=== PATIENT | male | born 1965 | race Caucasian/White ===

== ENCOUNTER 2020-09-17 07:37 | Inpatient (IN) | payer BC, SELFPAY ==
[2020-09-17] VITALS (37 sets, daily range): BP systolic 125–231; BP diastolic 77–145; PULSE 67–98; RESP 15–29; TEMP 36.2–37.1; O2SAT 92–100; BMI 37.5
--- NOTE | ~2020-09-17 | XR_ITS ---
EXAMINATION: XR chest 2V EXAM DATE: 09/17/2020 08:13 INDICATION: Generalized chest pain, nausea, uncontrolled hypertension. TECHNIQUE: Frontal and lateral projections of the chest obtained and reviewed. Comparison is made to prior examination from 10/30/2016. FINDINGS: The lungs are clear. There are no pleural effusions. The cardiomediastinal silhouette is within normal limits. There is no pneumothorax suspected. The bones and soft tissues are unremarkab le. IMPRESSION: No acute cardiopulmonary findings. Reviewed, dictated and finalized at location A.
--- NOTE | 2020-09-17 07:40 | ED.CHESTPAIN ---
HPI - Chest Pain General Chief Complaint: Chest Pain Stated Complaint: cp Time Seen by Provider: 09/17/20 07:40 Source: patient and family Mode of arrival: ambulatory Limitations: no limitations History of Present Illness HPI narrative: Patient is a 55-year-old male with a history of hypertension, hyperlipidemia, borderline diabetes who presents for evaluation of chest pain. Patient states chest pain has been intermittent since yesterday evening described as a dull, aching sensation in the center of his chest. Pain currently 1/10 in severity. Very mild to minimal. No radiation of the pain to the jaw, shoulder, back, neck or flanks. No ripping or tearing sensation to the pain. No associated shortness of breath currently. He did report diaphoresis, nausea and an episode of emesis with an episode of chest pain overnight. Patient states in the past he has been on medication for his blood pressure, cholesterol and prediabetes but discontinued these medication a year ago due to cost constraints. He denies any leg swelling or calf pain. No fever or chills. He reports a chronic cough but denies any increase sputum production. He has never seen a cellar hand. Related Data Allergies Allergy/AdvReac Type Severity Reaction Status Date / Time Penicillins Allergy Unknown Verified 01/14/17 10:31 Review of Systems Review of Systems: Narrative: CONSTITUTIONAL: Denies fever, chills, or sweats. EYES: Denies visual changes, redness, or discharge. ENT: Denies rhinorrhea, congestion, sore throat, or otalgia. CARDIOVASCULAR: Reports minimal chest pain, denies palpitations or edema RESPIRATORY: Reports chronic cough without shortness of breath GASTROINTESTINAL: Denies abdominal pain, earlier nausea and vomiting has resolved GENITOURINARY: Denies dysuria or hematuria. SKIN: Denies rash or itching. MUSCULOSKELETAL: Denies back pain, joint pain, or myalgia. NEUROLOGIC: Denies headache, numbness, or weakness. [facility] Past Medical History Medical History Hyperlipidemia Hypertension Family History Family History (Updated 01/14/17 @ 10:30 by DOCTOR UNKNOWN) Father Hypertension Family history of coronary artery disease Family history of diabetes mellitus in first degree relative Sibling Family history of diabetes mellitus in first degree relative Mother Diabetes mellitus Social History Social History (Updated 09/17/20 @ 08:13 by Milagro Jarrett MD) Smoking status: Current every day smoker Alcohol intake: current Gender identity (if verbalized by the patient): Male Exam Narrative: Exam Narrative: GENERAL: Awake, alert, conversant HEAD: Normocephalic, atraumatic. EYES: PERRLA and EOMI. ENT: Nares clear, no rhinorrhea or epistaxis. Mucous membranes moist. NECK: Supple. CHEST: No respiratory distress, breathing even and non labored, no chest wall tenderness HEART: Regular rate, sinus rhythm ABDOMEN:Non distended, non tender EXTREMITIES: Normal range of motion. No edema. SKIN: Warm, dry, no rash. NEURO:No focal deficits. Alert and oriented x3 Course Vital Signs Vital signs: Vital Signs Pulse Rate 91 09/17/20 07:44 Pulse Oximetry 99 09/17/20 07:44 Temperature 37.1 C 09/17/20 07:48 Pulse Rate 90 09/17/20 09:51 Respiratory Rate 29 H 09/17/20 09:51 Blood Pressure 158/100 H 09/17/20 09:51 Pulse Oximetry 100 09/17/20 09:51 MDM - Chest Pain MDM Narrative Medical decision making narrative: Patient is a 55-year-old with significant cardiac risk factors, who presents for evaluation of chest pain. Given history and symptoms it does seem anginal in nature. EKG without acute ischemic changes. He was given ASA in the ED. Laboratory results notable for elevated glucose, elevated troponin. Patient without recurrent pain in the ER. He was very hypertensive at the time of arrival was given IV hydralazine. Patient had elevated glucose and was given
--- NOTE | 2020-09-17 07:43 | ECG_ITS ---
Measurements Intervals [place] Rate: 85 P: 42 OR: 177 QRS: -55 QRSD: 106 T: 88 QT: 368 QTc: 439 Interpretive Statements SINUS RHYTHM POSSIBLE LEFT ATRIAL ENLARGEMENT INCOMPLETE RIGHT BUNDLE BRANCH BLOCK LEFT ANTERIOR FASCICULAR BLOCK ST-T WAVE ABNORMALITY IN HIGH LATERAL LEADS- CONSIDER ISCHEMIA BASELINE ARTIFACT- I, III, AVL ABNORMAL ECG Electronically Signed On 09-17-2020 7:52:08 CDT by Hans Reyes D.O.
[2020-09-17 08:03] LABS: Basophils Percent Auto 0.4 % (0.2-1.2); Eosinophils Absolute Auto 0.1 K/mm3 (0-0.3); Eosinophils Percent Auto 0.4 % (0-4.4); Hemoglobin 17.7 g/dL (14.0-18.0); Immature Granulocyte Absolute 0.05 K/mm3 (0.00-0.031); Immature Granulocyte Percent A 0.4 % (0-0.5); Lymphocytes Absolute Auto 1.25 K/mm3 (0.9-3.2); Lymphocytes Percent Auto 11.2 % (18.3-44.2); Mean Corpuscular Hemoglobin 29.8 pg (26-34); Mean Corpuscular Volume 87.5 fl (80-100); Mean Platelet Volume 12.7 fl (7.4-10.4); Monocytes Absolute Auto 0.8 K/mm3 (0.1-0.6); Monocytes Percent Auto 7.1 % (2.6-8.5); Neutrophils Percent Auto 80.5 % (45.5-73.1); Platelet Count Result 170 k/mm3 (150-375); Red Blood Count 5.94 M/mm3 (4.6-6.20); Red Cell Distribution Width 13.3 % (11.5-14.5); White Blood Count 11.1 K/mm3 (4.5-10.0)
[2020-09-17] MEDS: ASPIRIN 81 MG CHEWABLE TABLET 324 MG PO (08:04)
[2020-09-17 08:14] LABS: INR 0.9; Prothrombin Time 12.6 Seconds (11.1-14.7)
[2020-09-17 08:15] LABS: Partial Thromboplastin Time 27.7 SECONDS (22.3-36.8)
[2020-09-17] MEDS: MORPHINE SULFATE (*CRX) 4 MG/ML INJ IV PUSH (08:16)
[2020-09-17] MEDS: ONDANSETRON INJ 4 MG/2 ML VIAL IV PUSH (08:17)
[2020-09-17] MEDS: hydrALAZINE HCL 20 MG/ML VIAL IV PUSH (08:17)
[2020-09-17 08:36] LABS: Anion Gap 4 mmol/L (8-16); Blood Urea Nitrogen 19 mg/dL (9-20); Calcium 9.7 mg/dL (8.4-10.2); Carbon Dioxide 36 mmol/L (22-30); Chloride 92 mmol/L (98-107); Estimated CRCL calculation 94 ml/min; Estimated Glomerular Filt Rate > 60; Glucose 509 mg/dL (75-110); Potassium 4.2 mmol/L (3.4-5.0); Sodium 132 mmol/L (137-145); Troponin I 0.116 ng/mL (0.000-0.034)
[2020-09-17] MEDS: HEPARIN SODIUM 5,000 UNITS/ML VIAL 4000 UNITS IV PUSH ×2 (09:03→20:21)
[2020-09-17] MEDS: INSULIN HUMAN REGULAR (*BKC) 100 UNITS/ML 7 UNITS SUB-Q (09:04)
[2020-09-17] MEDS: SODIUM CHLORIDE 0.9% IV 1,000 ML 999 ML IV CONT (09:06)
[2020-09-17] MEDS: HEPARIN SOD/D5W 100 UNITS/ML 25,000 UNITS/250 ML BAG 10 UNITS IV CONT (09:06)
[2020-09-17 09:10] LABS: Glucose Point of Care > 500 (65-105)
[2020-09-17 09:14] LABS: Hemoglobin A1C > 14.0 % (<5.7)
--- NOTE | 2020-09-17 09:57 | PC.NURSE ---
Kolby at beside updating pt.
[2020-09-17 10:00] LABS: Cholesterol 215 mg/dL (0-200); HDL Direct 39 mg/dL; Triglycerides 208 mg/dL (<150)
--- NOTE | 2020-09-17 10:03 | PC.NURSE ---
Attempted to call report to Dayna Castillo, per unit sec she is not available and will call back.
[2020-09-17 10:11] LABS: LDL Cholesterol Direct 123 mg/dL
[2020-09-17 10:26] LABS: Glucose Point of Care 493 (65-105)
--- NOTE | 2020-09-17 12:17 | ECHO_ITS ---
Patient Info Name: Edison Gagnon Age: 55 years : 1965 Gender: Male Ht: 72 in Wt: 277 lbs BSA: 2.57 m2 HR: 93 bpm BP: 196 / 108 mmHg Technical Quality: Fair Exam Date: 09/17/2020 1:31 PM Exam Location: [facility] Patient Status: Inpatient Admit Date: 09/17/2020 Staff Ordering Physician: Yojana Ocasio MD ([email or web address]) Gunner Mate: Lillian Petty RDCS Attending Provider: Chanell Bhat MD Exam Type: CA echo dop color flow w con Study Info Indications I21.4 - Non-ST elevation (NSTEMI) myocardial infarction Complete two-dimensional, color flow and Doppler transthoracic echocardiogram is performed with contrast to opacify the left ventricle and to improve the deliniation of the left ventricle endocardial borders. Contrast/Agitated Saline Contrast/Ag. Saline: Definity Amount: 4.00 ml Administered By: Nina Gregorio RN Existing IV Access: Yes IV Access Condition: patent with no signs of infiltration Summary 1. There is severe (asymmetric septal) increased left ventricular wall thickness (IVSDd 2.5 cm) consistent with hypertrophic cardiomyopathy . There is no evidence of left ventricular outflow obstruction. 2. Left ventricular systolic function is normal, estimated at 55-60%. 3. The aortic valve is trileaflet. 4. There is no aortic valve stenosis. 5. The mitral valve has normal leaflets. 6. There is no mitral valve regurgitation. 7. There is trace tricuspid valve regurgitation. 8. No pulmonary hypertension, estimated pulmonary arterial systolic pressure is 20 mmHg. 9. Normal inferior vena cava with >50% collapse upon inspiration. 10. There is no pericardial effusion. Left Ventricle Left ventricular chamber dimension is normal. Left ventricular systolic function is normal, estimated at 55-60%. There is severe (asymmetric septal) increased left ventricular wall thickness (IVSDd 2.5 cm) consistent with hypertrophic cardiomyopathy . There is no evidence of left ventricular outflow obstruction. The left ventricular diastolic function is grade I diastolic dysfunction. Right Ventricle Right ventricular chamber dimension is normal. Right ventricular systolic function is normal. Left Atria Left atrial chamber dimension is normal. Right Atria Right atrial chamber dimension is normal. Aortic Valve The aortic valve is trileaflet. There is no aortic valve sclerosis. There is no aortic valve stenosis. There is no aortic valve regurgitation. Pulmonic Valve The pulmonic valve is normal. There is no pulmonic valve stenosis. There is no pulmonic regurgitation. Mitral Valve The mitral valve has normal leaflets. There is no mitral valve stenosis. There is no mitral valve regurgitation. Tricuspid Valve The tricuspid valve leaflets are normal. There is trace tricuspid valve regurgitation. No pulmonary hypertension, estimated pulmonary arterial systolic pressure is 20 mmHg. Pericardium/Pleural The pericardium appears normal. There is no pericardial effusion. Inferior Vena Cava Normal inferior vena cava with >50% collapse upon inspiration. Aorta The aortic root size at the sinus of Valsalva is normal. The prox ascending aorta size is normal. Left Ventricular Outflow Tract Name Value Normal LV
--- NOTE | 2020-09-17 12:47 | PM.CNCAR ---
Assessment and Plan Assessment and plan (1) NSTEMI (non-ST elevated myocardial infarction): Code(s): I21.4 - Non-ST elevation (NSTEMI) myocardial infarction Status: Acute Assessment and Plan: 55 y/o with extensive cardiovascular risk factors including obesity, active tobacco abuse, poorly controlled HTN and DM (self stopped medicine >1 year ago, HgA1C 14) who presents with chest pain He rules in for NE with trop of 0.1 -- 1.6 He is chest pain free since admission EKG without dynamic changes He will need LHC/coronary angiogram. Currently his BP is markedly elevated and his blood sugar > 500. Will plan LHC tomorrow once he is more stable. Sooner if he develops chest pain. For now will continue IV heparin. received ASA 325. Will continue with 81 daily. Will hold off second antiplatelet agents in case cath shows multivessel disease and he needs CABG. Start high intensity stating, atrvastatin 40 mg daily For BP control. Will start Metoprolol and Amlodipine. If BP remains elevated will start Nitro drip Check 2D echo management for hyperglycemia per primary team (2) Hypertensive urgency: Code(s): I16.0 - Hypertensive urgency Status: Acute Assessment and Plan: Start Metoprolol and Amlodipine. Consider Nitro drip if BP remains markedly elevated particularity if he has recurrence of chest pain (3) Diabetes mellitus: Code(s): E11.9 - Type 2 diabetes mellitus without complications Status: Acute Assessment and Plan: HgA1c is 14. (4) Tobacco abuse: Code(s): Z72.0 - Tobacco use Status: Acute Assessment and Plan: Okay to use nicotine patch from cardiac standpoint (5) CLIVE (obstructive sleep apnea): Code(s): G47.33 - Obstructive sleep apnea (adult) (pediatric) Status: Acute Assessment and Plan: Non compliant/[id number] to CPAP (6) History of paroxysmal supraventricular tachycardia: Code(s): Z86.79 - Personal history of other diseases of the circulatory system Status: Acute Assessment and Plan: noted on holter 2017 with short runs of SVT. in Sinus rhythm currently. Continue to monitor on tele History of Present Illness History of Present Illness Consult date/time: 09/17/20 12:47 55 y/o with h/o HTN, DM, HLD, CLIVE, tobacco abuse who presented with chest pain He reports 1/10 chest pain started around 11:00 pm last night, he went to sleep and around 3:00 am and his chest pain was up to 3/10 and he was nauseated and vomited around same time. He was diaphoretic as well. He eventually decided to seek medical attention around 7:00 am. He received ASA in ER and chest pain has resolved now. his initial trop was 0.1 and that went up now to 1.6. He remains chest pain free at this moment. He denies dyspnea, lightheadedness, dizziness or syncope. In ER he was also noted to have markedly elevated BP 190/120. His BG was also 500+. He has no recent medical follow up and has not been taking any of his medications in over a year. He smokes 2 packs a day. EKG shows sinus rhythm with left axis deviation and no ST/T changes. Chest Xray with no pulmonary edema or cardiomegaly He underwent cardiac work up in 2017 for palpitation. At that time had holter monitor that showed short runs of SVT. Stress test (plain EKG, no imaging) was negative for ischemia at 79% of max predicted heart rate with poor exercise tolerance. Reason For Visit: Unstable angina, hyperglycemia Review of Systems Review of Systems: All systems reviewed & are unremarkable except as noted in HPI and below Constitutional: Constitutional: Denies fatigue and Denies headache(s) Eyes: Eyes: Denies blurry vision ENT: Reports Normal hearing present and Denies headache(s) Cardiovascular: Cardiovascular: Denies chest pain, Denies diaphoresis, Denies pedal edema, Denies leg edema, Denies lightheadedness, Denies palpitations and Denies dyspnea Respiratory: Respiratory: Sergio
[2020-09-17 12:57] LABS: Glucose Point of Care 436 (65-105)
[2020-09-17] MEDS: METOPROLOL TARTRATE 25 MG TABLET PO (13:03)
[2020-09-17] MEDS: hydrALAZINE HCL 20 MG/ML VIAL 10 MG IV PUSH (13:04)
--- NOTE | 2020-09-17 13:17 | ADMGEN ---
This patient, Edison Hutchins Walker, was admitted to IMU Room 201-01 at 1030. Patient/family oriented to hospital policies and general routines including ID bracelet, bed and alarms, visiting hours, pain management, procedures, bathroom and other care routines, personal items, smoking policy, room service/diet, and visiting hours. Information on how to activate the Rapid Response Team has been discussed. Patient/Family are encouraged to report perceived risks to care and to ask questions if they do not understand what they are told or what they should do.
[2020-09-17] MEDS: PERFLUTREN LIPID MICROSPHERES 1.5 ML VIAL DILUTED TO 10 ML TOTAL VOLUME IV PUSH (14:09)
--- NOTE | 2020-09-17 15:39 | PM.IMHP ---
H&P: HPI History of Present Illness Date/Time: 09/17/20 15:39 55-year-old male with a history of hypertension, hyperlipidemia, borderline diabetes who presents for evaluation of chest pain. Patient states chest pain has been intermittent since yesterday evening described as a dull, aching sensation in the center of his chest. Pain currently 1/10 in severity. Pt has not seen a doctor for 1 year. Pt has history of DM and HTN but has not been taking his medications. Pt is a smoker of 2 packs a day. Pt not been in hospital himself. Pt states he could not afford his medications. Pt has mild chest pains today 1-2/10. denies any sob. BP is very high and sugars are high. Pt is seen by cardiology here for heart cath tomorrow am. Chief Complaint: CHEST PAIN Review of Systems Review of Systems: All systems reviewed & are unremarkable except as noted in HPI and below PMFSH Past Medical History Medical History Hyperlipidemia Hypertension Family History Family History Father Hypertension Family history of coronary artery disease Family history of diabetes mellitus in first degree relative Sibling Family history of diabetes mellitus in first degree relative Mother Diabetes mellitus Social History Social History Smoking packs per day: 2 Smoking cigarettes per day: 40.0 Years smoked: 27 Smoking pack-years: 54.00 Smoking status: Current every day smoker Tobacco type: cigarettes Alcohol intake: current Gender identity (if verbalized by the patient): Male Spiritual care concerns: No Meds Home Medications and Allergies Home Medications Medication Instructions Recorded Confirmed Type No Home Medications 09/17/20 09/17/20 History Allergies Allergy/AdvReac Type Severity Reaction Status Date / Time Penicillins Allergy Unknown Verified 01/14/17 10:31 Vital Signs Vital Signs - 24 hr 09/17/20 07:44 09/17/20 07:45 09/17/20 07:46 Temperature Pulse Rate 91 89 86 Respiratory Rate 21 H 20 Blood Pressure 231/145 H Pulse Oximetry 99 97 100 09/17/20 07:48 09/17/20 08:00 09/17/20 08:02 Temperature 37.1 C Pulse Rate 88 86 94 Respiratory Rate 24 H 21 H 17 Blood Pressure 231/145 H 197/129 H Pulse Oximetry 98 100 09/17/20 08:15 09/17/20 08:20 09/17/20 08:22 Temperature Pulse Rate 88 96 91 Respiratory Rate 22 H 21 H 16 Blood Pressure 205/112 H 205/112 H Pulse Oximetry 96 97 97 09/17/20 08:30 09/17/20 08:38 09/17/20 08:39 Temperature Pulse Rate 92 96 98 Respiratory Rate 21 H 24 H 19 Blood Pressure 153/103 H Pulse Oximetry 94 96 95 09/17/20 08:43 09/17/20 08:45 09/17/20 08:51 Temperature Pulse Rate 94 96 95 Respiratory Rate 22 H 22 H 20 Blood Pressure 158/101 H 189/120 H Pulse Oximetry 100 95 09/17/20 09:00 09/17/20 09:01 09/17/20 09:15 Temperature Pulse Rate 93 95 91 Respiratory Rate 22 H Blood Pressure 157/108 H Pulse Oximetry 92 97 97 09/17/20 09:21 09/17/20 09:30 09/17/20 09:31 Temperature Pulse Rate 87 90 88 Respiratory Rate 19 16 15 Blood Pressure 144/89 H 164/102 H Pulse Oximetry 100 09/17/20 09:41 09/17/20 09:45 09/17/20 09:51 Temperature Pulse Rate 89 90 90 Respiratory Rate 15 21 H 29 H Blood Pressure 164/100 H 158/100 H Pulse Oximetry 100 09/17/20 10:25 09/17/20 10:30 09/17/20 10:54 Temperature 36.2 C L Pulse Rate 91 96 Respiratory Rate 18 18 Blood Pressure 163/95 H 195/123 H 191/120 H Pulse Oximetry 96 98 09/17/20 12:00 Temperature 36.4 C Pulse Rate 93 Respiratory Rate 16 Blood Pressure 196/108 H Pulse Oximetry 98 Exam Const: General: well developed Nutritional Appearance: well nourished HENMT: Head: normocephalic Eyes: General: appearance normal, both eyes and all related structures Pupils: Equal, round
--- NOTE | 2020-09-17 16:25 | PM.EVENT ---
Event Note Event Note Event Note: Notified that patient troponin up to 17. Patient remains chest pain free. 2D echo showed normal LV function and no obvious regional wall motion changes. Continue IV heparin. Will plan LHC in am.
[2020-09-17] MEDS: NICOTINE (*PBKC) 21 MG PATCH 1 PATCH TRANSDERM (16:36)
[2020-09-17] MEDS: amLODIPine BESYLATE 5 MG TABLET 10 MG PO (16:37)
[2020-09-17] MEDS: ATORVASTATIN 40 MG TABLET PO (16:38)
[2020-09-17] MEDS: SODIUM CHLORIDE 0.9% IV 1,000 ML 70 ML IV CONT (16:39)
[2020-09-17] MEDS: INSULIN ASPART (*BKC) 100 UNITS/ML SUB-Q (16:42)
[2020-09-17 16:47] LABS: Glucose Point of Care 327 (65-105)
--- NOTE | 2020-09-17 17:25 | PCRCNOTE ---
Pt. does not want to wear Cpap here. Notified Dr. Bhat.
[2020-09-17 19:50] LABS: Glucose Point of Care 255 (65-105)
[2020-09-17 19:57] LABS: Partial Thromboplastin Time 29.8 SECONDS (22.3-36.8)
[2020-09-17] MEDS: METOPROLOL TARTRATE 50 MG TAB PO (20:21)
[2020-09-17] MEDS: INSULIN GLARGINE (*BKC) 100 UNITS/ML 10 UNITS SUB-Q (20:22)
[2020-09-18] VITALS (22 sets, daily range): BP systolic 131–160; BP diastolic 79–105; PULSE 63–91; RESP 12–19; TEMP 36.2–37.1; O2SAT 96–100
[2020-09-18 03:45] LABS: Basophils Percent Auto 0.3 % (0.2-1.2); Eosinophils Absolute Auto 0.1 K/mm3 (0-0.3); Hematocrit 49.8 % (42.0-52.0); Hemoglobin 16.8 g/dL (14.0-18.0); Immature Granulocyte Absolute 0.04 K/mm3 (0.00-0.031); Immature Granulocyte Percent A 0.4 % (0-0.5); Lymphocytes Absolute Auto 1.96 K/mm3 (0.9-3.2); Lymphocytes Percent Auto 19.3 % (18.3-44.2); Mean Corpuscular HGB Conc 33.7 g/dl (32-36); Mean Corpuscular Hemoglobin 29.7 pg (26-34); Mean Corpuscular Volume 88.1 fl (80-100); Mean Platelet Volume 12.7 fl (7.4-10.4); Monocytes Percent Auto 9.4 % (2.6-8.5); Neutrophils Absolute Auto 7.1 K/mm3 (1.3-6.7); Neutrophils Percent Auto 69.6 % (45.5-73.1); Platelet Count Result 170 k/mm3 (150-375); Red Blood Count 5.65 M/mm3 (4.6-6.20); Red Cell Distribution Width 13.7 % (11.5-14.5); White Blood Count 10.2 K/mm3 (4.5-10.0)
[2020-09-18 03:57] LABS: Anion Gap 1 mmol/L (8-16); Blood Urea Nitrogen 18 mg/dL (9-20); Calcium 8.5 mg/dL (8.4-10.2); Carbon Dioxide 34 mmol/L (22-30); Chloride 100 mmol/L (98-107); Estimated CRCL calculation 109 ml/min; Estimated Glomerular Filt Rate > 60; Glucose 277 mg/dL (75-110); Potassium 3.8 mmol/L (3.4-5.0); Sodium 135 mmol/L (137-145)
[2020-09-18 03:58] LABS: Partial Thromboplastin Time 47.7 SECONDS (22.3-36.8)
[2020-09-18] MEDS: HEPARIN SOD/D5W 100 UNITS/ML 25,000 UNITS/250 ML BAG 18 UNITS IV CONT (06:16)
[2020-09-18] MEDS: SODIUM CHLORIDE 0.9% IV 1,000 ML 70 ML IV CONT (06:17)
[2020-09-18] MEDS: HEPARIN SODIUM 5,000 UNITS/ML VIAL 4000 UNITS IV PUSH (06:19)
[2020-09-18 08:01] LABS: Glucose Point of Care 293 (65-105)
[2020-09-18] MEDS: ATORVASTATIN 40 MG TABLET PO (08:04)
[2020-09-18] MEDS: METOPROLOL TARTRATE 50 MG TAB PO ×2 (08:04→20:19)
[2020-09-18] MEDS: amLODIPine BESYLATE 5 MG TABLET 10 MG PO (08:04)
[2020-09-18] MEDS: ASPIRIN 81 MG CHEWABLE TABLET PO (08:05)
[2020-09-18] MEDS: lisinopriL 10 MG TABLET PO (08:05)
--- NOTE | 2020-09-18 08:58 | PM.PNCARD ---
Progress Note: A&P Assessment and Plan (1) NSTEMI (non-ST elevated myocardial infarction): Code(s): I21.4 - Non-ST elevation (NSTEMI) myocardial infarction Status: Acute Assessment and Plan: 55 y/o with extensive cardiovascular risk factors including obesity, active tobacco abuse, poorly controlled HTN and DM (self stopped medicine >1 year ago, HgA1C 14) who presents with chest pain He rules in for MT with trop of 0.1 -- 1.6 --17 He is chest pain free since admission EKG without dynamic changes LHC/coronary angiogram planned today 2D echo shows no regional wall motion changes and no significant valvular disease. Incidental diagnosis of hypertrophic cardiomyopathy (septal variant) noted without LVOT obstruction per echo Continue IV heparin repeat EKG this moring. Also repeat trop to follow trend Contnue ASA Will hold off second antiplatelet agents in case cath shows multivessel disease and he needs CABG. Start high intensity statin, atrvastatin 40 mg daily Started Metoprolol and Amlodipine. BP better controlled this am. May need further adjustment of antihypertensives Management for hyperglycemia per primary team Smoking cessation counseling. okay to use Nicotine patch (2) Hypertensive urgency: Code(s): I16.0 - Hypertensive urgency Status: Acute Assessment and Plan: BP better controlled down to 150s systolic from 190s on admission (3) Diabetes mellitus: Code(s): E11.9 - Type 2 diabetes mellitus without complications Status: Acute Assessment and Plan: HgA1c is 14. (4) Tobacco abuse: Code(s): Z72.0 - Tobacco use Status: Acute Assessment and Plan: Okay to use nicotine patch from cardiac standpoint (5) CLIVE (obstructive sleep apnea): Code(s): G47.33 - Obstructive sleep apnea (adult) (pediatric) Status: Acute Assessment and Plan: Non compliant/intolerant to CPAP (6) History of paroxysmal supraventricular tachycardia: Code(s): Z86.79 - Personal history of other diseases of the circulatory system Status: Acute Assessment and Plan: noted on holter 2017 with short runs of SVT. in Sinus rhythm currently. Continue to monitor on tele Subjective Date/time seen: 09/18/20 08:58 No overnight events. He denies recurrence of chest pain since admission. Denies dyspnea. Review of Systems Review of Systems: All systems reviewed & are unremarkable except as noted in HPI and below Constitutional: Constitutional: Denies fatigue and Denies headache(s) Eyes: Eyes: Denies blurry vision ENT: Reports Normal hearing present and Denies headache(s) Cardiovascular: Cardiovascular: Denies chest pain, Denies diaphoresis, Denies pedal edema, Denies leg edema, Denies lightheadedness, Denies palpitations and Denies dyspnea Respiratory: Respiratory: Denies cough and Denies dyspnea Gastrointestinal: Gastrointestinal: Denies abdominal pain Musculoskeletal: Musculoskeletal: Denies back pain Neurologic: Reports Normal hearing present and Denies headache(s) Psychiatric: Psychiatric: Denies anxiety Endocrine: Endocrine: Denies fatigue and Denies palpitations Exam Const: General: no acute distress Eyes: Sclera: sclerae normal Neck: Neck: no JVD Carotids: no bruits Resp: Effort & Inspection: normal respiratory effort Auscultation: clear to auscultation bilaterally Cardio: Rate: regular rate and not tachycardic Rhythm: regular rhythm Heart sounds: no gallops, no murmurs and no rubs Skin: General skin exam: normal color Neuro: Cranial nerves: Yes Normal hearing present Speech: normal speech Extrem: General: normal to inspection and no edema Psych: Affect: normal affect Objective Data Vital Signs Vital Signs: Vital Signs - 24 hr 09/17/20 09:00 09/17/20 09:01 09/17/20 09:15 Temperature Pulse Rate 93 95 91 Respiratory Rate 22 H Blood Pressure 157/108 H Pulse Oximetry 92 97 97
--- NOTE | 2020-09-18 10:20 | ECG_ITS ---
Measurements Intervals [place] Rate: 69 P: -11 NE: 187 QRS: -57 QRSD: 82 T: 132 QT: 422 QTc: 453 Interpretive Statements SINUS RHYTHM INCOMPLETE RIGHT BUNDLE BRANCH BLOCK LEFT ANTERIOR FASCICULAR BLOCK ST-T WAVE ABNORMALITY IN HIGH LATERAL LEADS- CONSIDER ISCHEMIA BASELINE ARTIFACT- I, II, AVR, AVL,A VF ABNORMAL ECG Electronically Signed On 09-18-2020 11:47:53 CDT by Hans Reyes D.O.
[2020-09-18 12:22] LABS: Glucose Point of Care 251 (65-105)
--- NOTE | 2020-09-18 13:22 | WPDMODSED ---
Moderate Sedation Note-Pt Data Patient Data Allergies Allergy/AdvReac Type Severity Reaction Status Date / Time Penicillins Allergy Unknown Verified 01/14/17 10:31 Home Medications Medication Instructions Recorded Confirmed Type No Home Medications 09/17/20 09/17/20 History Current Medications: Active Medications Amlodipine Besylate (Amlodipine Besylate 5 Mg Tablet) 10 mg PO QAM [facility] Last Admin: 09/18/20 08:04 Dose: 10 mg Documented by: Aspirin (Aspirin 81 Mg Chewable Tablet) 81 mg PO DAILY@0800 [facility] Last Admin: 09/18/20 08:05 Dose: 81 mg Documented by: Atorvastatin Calcium (Atorvastatin 40 Mg Tablet) 40 mg PO DAILY [facility] Last Admin: 09/18/20 08:04 Dose: 40 mg Documented by: Dextrose (Dextrose 50% 25 Gm/50 Ml Syringe) 12.5 gm IV PUSH PRN PRN; Protocol PRN Reason: Hypoglycemia Dextrose (Dextrose 50% 25 Gm/50 Ml Syringe) 12.5 gm IV PUSH PRN PRN; Protocol PRN Reason: Hypoglycemia Glucagon (Glucagon For Inj 1 Mg Vial) 1 mg IM PRN PRN; Protocol PRN Reason: Hypoglycemia Glucagon (Glucagon For Inj 1 Mg Vial) 1 mg IM PRN PRN; Protocol PRN Reason: Hypoglycemia Glucose (Glucose Oral Gel 15 Gm Of Glucse In 37.5 Gm Tube) 15 gm PO PRN PRN; Protocol PRN Reason: Hypoglycemia Glucose (Glucose Oral Gel 15 Gm Of Glucse In 37.5 Gm Tube) 15 gm PO PRN PRN; Protocol PRN Reason: Hypoglycemia Heparin Sodium (Porcine) (Heparin Sodium 5,000 Units/Ml Vial) 4,000 units IV PUSH PRN PRN PRN Reason: aPTT less than 55 seconds Last Admin: 09/18/20 06:19 Dose: 4,000 units Documented by: Heparin Sodium (Porcine) (Heparin Sodium 5,000 Units/Ml Vial) 3,500 units IV PUSH PRN PRN PRN Reason: aPTT 55 - 70 seconds Hydralazine HCl (Hydralazine Hcl 20 Mg/Ml Vial) 10 mg IV PUSH Q8H PRN PRN Reason: Blood Pressure - High Last Admin: 09/17/20 13:04 Dose: 10 mg Documented by: Heparin Sodium/Dextrose (Heparin Sodium/D5w 100 Units/Ml) 25,000 units in 250 mls @ 18 mls/hr IV CONT .[id number] [facility]; Protocol Last Admin: 09/18/20 06:16 Dose: 1,800 units/hr, 18 mls/hr Documented by: Dextrose (Dextrose 5% 1,000 Ml) 1,000 mls @ 100 mls/hr IVPB PRN PRN; Protocol PRN Reason: Hypoglycemia Dextrose (Dextrose 5% 1,000 Ml) 1,000 mls @ 100 mls/hr IVPB PRN PRN; Protocol PRN Reason: Hypoglycemia Sodium Chloride (Normal Saline Iv) 1,000 mls @ 70 mls/hr IV CONT .[id number] [facility] Last Admin: 09/18/20 06:17 Dose: 70 mls/hr Documented by: Insulin Aspart (Insulin Aspart (*Bkc) 100 Units/Ml) 4 - 8 units SUB-Q TIDWM [facility]; Protocol Last Admin: 09/18/20 09:54 Dose: Not Given Documented by: Insulin Glargine (Insulin Glargine (*Bkc) 100 Units/Ml) 10 units SUB-Q HS [facility] Last Admin: 09/17/20 20:22 Dose: 10 units Documented by: Lisinopril (Lisinopril 10 Mg Tablet) 10 mg PO DAILY [facility] Last Admin: 09/18/20 08:05 Dose: 10 mg Documented by: Metoprolol Tartrate (Metoprolol Tartrate 50 Mg Tab) 50 mg PO Q12HR [facility] Last Admin: 09/18/20 08:04 Dose: 50 mg Documented by: Morphine Sulfate (Morphine Sulfate (*Crx) 4 Mg/Ml Inj) 4 mg IV PUSH Q2H PRN PRN Reason: Pain Rated 7-10 Nicotine (Nicotine (*Pbkc) 21 Mg Patch) 1 patch TRANSDERM QAM [facility] Last Admin: 09/17/20 16:36 Dose: 1 patch Documented by: Ondansetron HCl (Ondansetron Inj 4 Mg/2 Ml Vial) 4 mg IV PUSH Q4H PRN PRN Reason: Nausea Sedation/Anesthesia: No previous sedation/anesthesia problems (including family history). [facility] Past Medical History Medical History Hyperlipidemia Hypertension Family History Family History Father Hypertension Family history of coronary artery disease Family history of diabetes mellitus in first degree relative Sibling Family history of diabetes mellitus in first degree relative Mother Diabetes mellitus Social History Social History Smoking packs per day: 2 Smoking cigarettes per da
--- NOTE | 2020-09-18 13:39 | PM.IMPN ---
Progress Note: A&P Assessment and Plan (1) History of paroxysmal supraventricular tachycardia: Code(s): Z86.79 - Personal history of other diseases of the circulatory system Status: Acute Assessment and Plan: Continue to monitor in IMU pt seen by cardiology (2) CLIVE (obstructive sleep apnea): Code(s): G47.33 - Obstructive sleep apnea (adult) (pediatric) Status: Acute Assessment and Plan: Pt to have CPAP at night (3) Tobacco abuse: Code(s): Z72.0 - Tobacco use Status: Acute Assessment and Plan: Pt to have nicotine patch pt is a smoker of 2 packs a day (4) Diabetes mellitus: Code(s): E11.9 - Type 2 diabetes mellitus without complications Status: Acute Assessment and Plan: Pt has been non compliant, pt is on lantus 10 units per day and SSI, continue to monitor accuchecks. (5) Hypertensive urgency: Code(s): I16.0 - Hypertensive urgency Status: Acute Assessment and Plan: Pt is on iv hydralazine and oral metroprolol and norvasc, I will increase his beta blockade and add lisinopril. (6) NSTEMI (non-ST elevated myocardial infarction): Code(s): I21.4 - Non-ST elevation (NSTEMI) myocardial infarction Status: Acute Assessment and Plan: Pt is on a heparin drip, ASA, pt is on statin, Pt can use NTG for severe CHEST pains. Pt for heart cath today Subjective Date/time seen: 09/18/20 13:39 Interval history: 55year old man hiistory of hypertension, hyperlipidemia, borderline diabetes who presents for evaluation of chest pain. Pts trop went to 17. Pt due to have heart cath today. Advised risk factor management, HTN, DM and tobacco smoking. Review of Systems Review of Systems: All systems reviewed & are unremarkable except as noted in HPI and below Exam Const: General: well developed Nutritional Appearance: well nourished HENMT: Head: normocephalic Eyes: General: appearance normal, both eyes and all related structures Pupils: Equal, round and reactive pupils present Neck: Neck: supple Chest: Chest palpation & inspection: normal inspection of the chest Resp: Effort & Inspection: normal respiratory effort Auscultation: clear to auscultation bilaterally Cardio: Jugular venous distension: no JVD Rhythm: regular rhythm Heart sounds: S1 normal heart sound present and S2 normal heart sound present GI: Inspection: normal to inspection Auscultation: normal bowel sounds Skin: General skin exam: normal color and dry skin Neuro: Cranial nerves: Yes CN's II-XII intact bilaterally and Yes Equal, round and reactive pupils present Cognition (Neuro): normal cognition Speech: normal speech Motor exam (neuro): 5/5 motor strength present throughout Extrem: General: normal to inspection Psych: Appearance: grossly normal Mental Status: mental status grossly normal Objective Data Vital Signs Vital Signs: Vital Signs - 24 hr 09/17/20 14:00 09/17/20 14:20 09/17/20 16:00 Temperature 36.3 C L Pulse Rate 85 81 Respiratory Rate 18 Blood Pressure 125/82 130/77 Pulse Oximetry 98 09/17/20 18:00 09/17/20 19:51 09/17/20 20:00 Temperature 36.3 C L Pulse Rate 84 89 94 Respiratory Rate 20 Blood Pressure 136/90 Pulse Oximetry 96 09/17/20 20:21 09/17/20 22:00 09/17/20 23:42 Temperature 36.3 C L Pulse Rate 82 67 73 Respiratory Rate 20 Blood Pressure 145/92 H Pulse Oximetry 96 09/18/20 00:00 09/18/20 02:00 09/18/20 04:00 Temperature 36.2 C L Pulse Rate 67 74 71 Respiratory Rate 18 Blood Pressure 160/97 H Pulse Oximetry 97 09/18/20 06:00 09/18/20 08:00 09/18/20 08:04 Temperature 36.6 C Pulse Rate 69 77 76 Respiratory Rate 18 Blood Pressure 152/105 H Pulse Oximetry 98 09/18/20 08:51 09/18/20 09:53 09/18/20 12:00 Temperature 37.1 C Pulse Rate 67 72 Respiratory Rate 18 Blood Pressure 131/79 Pulse Oximetry 97 98 Intake/Output Intake/Ou
--- NOTE | 2020-09-18 14:25 | ECG_ITS ---
Measurements Intervals [place] Rate: 72 P: 54 MI: 183 QRS: -61 QRSD: 101 T: 140 QT: 436 QTc: 477 Interpretive Statements SINUS RHYTHM LEFT ANTERIOR FASCICULAR BLOCK CONSIDER INFERIOR INFARCT, AGE INDETERMINATE T WAVE ABNORMALITY IN LATERAL LEADS- CONSIDER ISCHEMIA ABNORMAL ECG Electronically Signed On 09-18-2020 19:13:09 CDT by Hans Reyes D.O.
--- NOTE | 2020-09-18 14:29 | WPDCARDPROC ---
Cardiac Cath Procedure Note Date of procedure:: 09/18/20 Performing physician:: Bebeto Gomez MD Procedure: 1. Left heart catheterization, selective coronary angiogram. 2. Left ventricular angiogram. 3. PCI with stent placement to the 2nd large obtuse marginal of the circumflex using 3.5 x 15 mm Xience stent. 4. injection of intracoronary nitroglycerin 5. Angio-Seal device for arterial hemostasis 6. Conscious sedation, starting time is 1:37 p.m. ending time is 2:12 p.m. using 1 mg of Versed 25 micro, fentanyl medication administered by david Pineda RN under my supervision Air Compressor Mechanic: Dr. Bebeto Gomez Complications: None. Sedation: Conscious sedation, local anesthesia, using 1 mg of Versed said, 25 mcg of fentanyl, and using 1% lidocaine for local anesthesia. History: 55 years old gentleman with history of dyslipidemia hypertension and diabetes mellitus came to the hospital because of chest pain and noted to have non ST elevation myocardial infarction with troponin as high as 17 after further stabilization and treatment and after better improvement of his underlying uncontrolled diabetes he was brought to the recyclable materials collector for elective cardiac catheterization for definitive diagnosis of coronary disease. Technique: After informed consent was obtained from patient, was brought to the recyclable materials collector, put in the recyclable materials collector table, prepped and draped in usual sterile fashion. Five Qatari sheath was inserted into the right common femoral artery, through the sheath 5 Qatari JL4 catheter inserted, advanced to the left coronary artery, left coronary artery angiogram was obtained. The catheter was exchanged over guidewire into a 5 Qatari JR4 catheter, advanced to the right coronary artery, right coronary artery angiogram was obtained. The catheter then was exchanged over guidewire into this 5 Qatari pigtail catheter, advanced to left ventricle, left ventricular angiogram was obtained. The catheter then was pulled. The sheath then was changed over the guidewire to 6 Qatari sheath, over the sheath CLS 4.0 guide inserted advanced to the left coronary tree repeat left coronary angiogram was obtained. BMW wire was utilized, inserted and advanced through the lesion. Prior to that Angiomax was started, the lesion was identified, balloon angioplasty was done using emerge 12 x 2.5 mm balloon, went up to 8 atmospheric pressure for 20 seconds. Post balloon angioplasty angiogram was done showed improvement of the lesion but still with significant residual disease, this was treated with using stent, Xience stent 3.5 x 15 mm was inserted advanced to the lesion, and subsequently the stent was deployed with 12 atmospheric pressure for 20 seconds followed by another inflation for 12 atmospheric pressure for 30 seconds. Noted distal to the stent to have slight narrowing, treated with intracoronary nitroglycerin 200 mcg of nitroglycerin infused, and repeat angiogram showed improvement of the lesion with good distal runoff. Finally the wire was removed final angiograms were done. Right femoral artery was evaluate angiogram, and subsequently Angio-Seal device for arterial hemostasis was applied with no bleeding or hematoma Patient tolerated the procedure no complication, taken from the recyclable materials collector to his room in stable condition stable vital signs. Hemodynamics: aortic pressure 134/60 . LV pressure 134/04 with LVEDP of 22 mmHg Angiographic findings: Left main: Medium size artery no significant disease or stenosis. Lad medium size artery showed mid LAD 40% narrowing followed by 50% narrowing in the mid section. Left circumflex artery, large caliber vessel, showed mid circumflex and 2nd obtuse marginal which is large caliber vessel showed 99% subtotal occlusion RCA: Dominant vessel, showed mid RCA significant irregularity with a 40-50% disease. LV: Normal size left ventricle with normal left ventricular systolic function. Summary: single vessel severe coronary disease with d
[2020-09-18] MEDS: SODIUM CHLORIDE 0.9% IV 1,000 ML 125 ML IV CONT (16:10)
[2020-09-18] MEDS: INSULIN ASPART (*BKC) 100 UNITS/ML SUB-Q (16:11)
[2020-09-18] MEDS: NICOTINE (*PBKC) 21 MG PATCH 1 PATCH TRANSDERM (16:12)
[2020-09-18 17:16] LABS: Glucose Point of Care 226 (65-105)
[2020-09-18 20:16] LABS: Glucose Point of Care 256 (65-105)
[2020-09-18] MEDS: INSULIN GLARGINE (*BKC) 100 UNITS/ML 15 UNITS SUB-Q (20:18)
[2020-09-18] MEDS: TICAGRELOR 90 MG TABLET PO (20:20)
[2020-09-19] VITALS (8 sets, daily range): BP systolic 134–155; BP diastolic 90–97; PULSE 63–75; RESP 16–20; TEMP 36.2–36.8; O2SAT 98–99
--- NOTE | 2020-09-19 05:11 | ECG_ITS ---
Measurements Intervals [place] Rate: 72 P: -14 TN: 190 QRS: -60 QRSD: 94 T: 126 QT: 397 QTc: 437 Interpretive Statements SINUS RHYTHM LEFT ANTERIOR FASCICULAR BLOCK BORDERLINE ST-T WAVE ABNORMALITY- HIGH LATERAL LEADS BASELINE ARTIFACT- I, II, AVR, AVL, V5-V6 ABNORMAL ECG Electronically Signed On 09-19-2020 9:27:55 CDT by Hans Reyes D.O.
[2020-09-19] MEDS: METOPROLOL TARTRATE 50 MG TAB PO (09:01)
[2020-09-19] MEDS: ATORVASTATIN 40 MG TABLET PO (09:01)
[2020-09-19] MEDS: ASPIRIN 81 MG CHEWABLE TABLET PO (09:01)
[2020-09-19] MEDS: lisinopriL 10 MG TABLET PO (09:02)
[2020-09-19] MEDS: TICAGRELOR 90 MG TABLET PO (09:02)
[2020-09-19] MEDS: amLODIPine BESYLATE 5 MG TABLET 10 MG PO (09:02)
[2020-09-19 09:04] LABS: Glucose Point of Care 216 (65-105)
[2020-09-19] MEDS: INSULIN ASPART (*BKC) 100 UNITS/ML SUB-Q ×2 (09:04→12:49)
--- NOTE | 2020-09-19 09:09 | PM.PNCARD ---
Progress Note: A&P Assessment and Plan (1) NSTEMI (non-ST elevated myocardial infarction): Code(s): I21.4 - Non-ST elevation (NSTEMI) myocardial infarction Status: Acute Assessment and Plan: 55 y/o with extensive cardiovascular risk factors including obesity, active tobacco abuse, poorly controlled HTN and DM (self stopped medicine >1 year ago, HgA1C 14) who presents with chest pain Trop peaked at 21 [facility] revealed subtotal occlusion of OM2. pt s/p stent placement. Also has mild disease in LAD (40%) and RCA (40%) No complications post cath Continue ASA indefinitely. Continue Brilinta 90 mg BID for at least a year Continue Atorvastatin started this admission Started Metoprolol and Amlodipine this admission . BP better controlled. Will add Lisinopril for better BP control and also he is diabetic. 2D echo showed no regional wall motion changes and no significant valvular disease. Incidental diagnosis of hypertrophic cardiomyopathy (septal variant) noted without LVOT obstruction per echo Management for DM per primary team Smoking cessation counseling. okay to use Nicotine patch or Chantix on discharge (2) Hypertensive urgency: Code(s): I16.0 - Hypertensive urgency Status: Acute Assessment and Plan: BP better controlled but still ~ 150s systolic. . Will add Lisinopril (3) Diabetes mellitus: Code(s): E11.9 - Type 2 diabetes mellitus without complications Status: Acute Assessment and Plan: HgA1c is 14. (4) Tobacco abuse: Code(s): Z72.0 - Tobacco use Status: Acute Assessment and Plan: Smoking cessation counseling. Will need prescription for either nicotine patch or Chantix (whatever pt prefers) (5) CLIVE (obstructive sleep apnea): Code(s): G47.33 - Obstructive sleep apnea (adult) (pediatric) Status: Acute Assessment and Plan: Non compliant/intolerant to CPAP (6) History of paroxysmal supraventricular tachycardia: Code(s): Z86.79 - Personal history of other diseases of the circulatory system Status: Acute Assessment and Plan: noted on holter 2017 with short runs of SVT. in Sinus rhythm currently. Continue to monitor on tele Subjective Date/time seen: 09/19/20 09:09 No overnight events. No recurrence of chest pain. Denies dyspnea. Groin at access sigh is soft and non tender. Review of Systems Review of Systems: All systems reviewed & are unremarkable except as noted in HPI and below Constitutional: Constitutional: Denies fatigue and Denies headache(s) Eyes: Eyes: Denies blurry vision ENT: Reports Normal hearing present and Denies headache(s) Cardiovascular: Cardiovascular: Denies chest pain, Denies diaphoresis, Denies pedal edema, Denies leg edema, Denies lightheadedness, Denies palpitations and Denies dyspnea Respiratory: Respiratory: Denies cough and Denies dyspnea Gastrointestinal: Gastrointestinal: Denies abdominal pain Musculoskeletal: Musculoskeletal: Denies back pain Neurologic: Reports Normal hearing present and Denies headache(s) Psychiatric: Psychiatric: Denies anxiety Endocrine: Endocrine: Denies fatigue and Denies palpitations Exam Const: General: no acute distress Eyes: Sclera: sclerae normal Neck: Neck: no JVD Carotids: no bruits Resp: Effort & Inspection: normal respiratory effort Auscultation: clear to auscultation bilaterally Cardio: Rate: regular rate and not tachycardic Rhythm: regular rhythm Heart sounds: no gallops, no murmurs and no rubs Skin: General skin exam: normal color Neuro: Cranial nerves: Yes Normal hearing present Speech: normal speech Extrem: General: normal to inspection and no edema Psych: Affect: normal affect Objective Data Vital Signs Vital Signs: Vital Signs - 24 hr 09/18/20 09:53 09/18/20 12:00 09/18/20 14:30 Temperature 37.1 C 36.6 C Pulse Rate 67 72 70 Respiratory Rate 18 16 Blood Pressure 131/79 137/87 Pulse Oximetr
[2020-09-19] MEDS: NICOTINE (*PBKC) 21 MG PATCH 1 PATCH TRANSDERM (11:09)
[2020-09-19 12:56] LABS: Glucose Point of Care 216 (65-105)
--- NOTE | 2020-09-19 14:39 | PM.DS ---
DS: Admitting Diagnosis Admitting Diagnosis Admitting Diagnosis: CHEST PAIN DS: Discharge Diagnosis Discharge Diagnosis (1) History of paroxysmal supraventricular tachycardia: Code(s): Z86.79 - Personal history of other diseases of the circulatory system Status: Acute Assessment and Plan: Pt is stable for discharge not further SVT (2) CLIVE (obstructive sleep apnea): Code(s): G47.33 - Obstructive sleep apnea (adult) (pediatric) Status: Acute Assessment and Plan: Pt to have CPAP at night (3) Tobacco abuse: Code(s): Z72.0 - Tobacco use Status: Acute Assessment and Plan: Pt to have nicotine patch pt is a smoker of 2 packs a day, pt adviced to quit , pt can use nictoine patch, can follow his pCP or CHantix. (4) Diabetes mellitus: Code(s): E11.9 - Type 2 diabetes mellitus without complications Status: Acute Assessment and Plan: Pt has been non compliant, pt is on lantus 15 units per day, pt needs glucose strips and monitor, hbaic is ordered result is 14 (5) Hypertensive urgency: Code(s): I16.0 - Hypertensive urgency Status: Acute Assessment and Plan: Pt is oral metroprolol and norvasc, and lisinopril pt to continue this as outpatient. Bp is more stable today at 139/90 (6) NSTEMI (non-ST elevated myocardial infarction): Code(s): I21.4 - Non-ST elevation (NSTEMI) myocardial infarction Status: Acute Assessment and Plan: Pt is on a heparin drip, pt is sp heart cath continue ASA, and statin Pt is heart cath sp cardiac stent. Pt needs to continue on brilinta. electronics commodity manager looking into costs of medications. DS: Summary Hospital Course Hospital Course: 55year old man history of hypertension, hyperlipidemia, borderline diabetes who presents for evaluation of chest pain. Pts trop went over 20. Pt due to have heart cath today. Advised risk factor management, HTN, DM and tobacco smoking. Pts hbaic is over 14. Pt had cardiac stent placed, pt to continue on brilinta and other medications for DM and HTn and HLD. Time Spent with Patient Time attestation: Total time spent providing and/or coordinating discharge services:40 minutes on day of discharge Exam Const: General: well developed Nutritional Appearance: well nourished HENMT: Head: normocephalic Chest: Chest palpation & inspection: normal inspection of the chest Resp: Effort & Inspection: normal respiratory effort Auscultation: clear to auscultation bilaterally Cardio: Jugular venous distension: no JVD Rhythm: regular rhythm Heart sounds: S1 normal heart sound present and S2 normal heart sound present GI: Inspection: normal to inspection Auscultation: normal bowel sounds Skin: General skin exam: normal color and dry skin Neuro: Cranial nerves: Yes CN's II-XII intact bilaterally and Yes Equal, round and reactive pupils present Cognition (Neuro): normal cognition Speech: normal speech Motor exam (neuro): 5/5 motor strength present throughout Extrem: General: normal to inspection Psych: Appearance: grossly normal Mental Status: mental status grossly normal DS: Data Data Completed and Pending Labs on day of discharge: Labs from last 24 hours 09/19/20 09/19/20 09/18/20 11:38 07:51 19:31 POC Capillary Glucose 216 H 216 H 256 H 09/18/20 16:02 POC Capillary Glucose 226 H Discharge Plan Discharge Attending physician on discharge: SINDHU Consulting providers: Bebeto Gomez Discharging Clinician: Chanell Bhat Anticipated Discharge Date/Time: 09/19/20 14:34 Patient Disposition: Home, Self-Care Activity: as tolerated Diet: heart healthy and diabetic Discharge Instructions: Pt to follow up with PCP and Rob DM educator Patient Instructions: Antibiotic Form, Angina (DC), How to Stop Smoking (DC), Heart Healthy Diet (DC), Acute Coronary Syndrome (DC), Hypertension (GEN), Cardiac Rehabilitation (DC),
[2020-09-19 16:22] LABS: Hemoglobin A1C > 14.0 % (<5.7)
== END 2020-09-19 16:21 | disposition home or self-care (01) | DRG 247 ==
LOC: ANHED 09:27 → ANHIMU 09:55
PROVIDERS: Internal Medicine; Specialist; Admitting Provider Family Medicine; Emergency Provider Emergency Medicine; PCP Family Medicine; Visit Provider Family Medicine
PROC: 4A023N7 Measurement of Cardiac Sampling and Pressure, Left Heart, Percutaneous Approach (ICD-10-PCS; CPT 93452; principal; 2020-09-18 11:45)
PROC: 027034Z Dilation of Coronary Artery, One Artery with Drug-eluting Intraluminal Device, Percutaneous Approach (ICD-10-PCS; CPT 92928; 2020-09-18 11:45)
PROC: 027034Z Dilation of Coronary Artery, One Artery with Drug-eluting Intraluminal Device, Percutaneous Approach (ICD-10-PCS; 2020-09-18 11:45)
DX: I21.4 Non-ST elevation (NSTEMI) myocardial infarction (principal); I16.0 Hypertensive urgency; G47.33 Obstructive sleep apnea (adult) (pediatric); E78.5 Hyperlipidemia, unspecified; E11.65 Type 2 diabetes mellitus with hyperglycemia; F17.210 Nicotine dependence, cigarettes, uncomplicated; E66.9 Obesity, unspecified; Z68.38 Body mass index [BMI] 38.0-38.9, adult; Z86.79 Personal history of other diseases of the circulatory system
CPT/HCPCS: 36415; 71046; 80048; 80061; 82948; 83036; 84484; 85025; 85610; 85730; 93005; 93458; 96365; 96366; 96375; 99285; A9270; C1725; C1760; C1769; C1874; C1887; C1894; C8929; C9600; G0269; J0360; J0583; J1644; J1815; J2250; J2270; J2405; J3010; J7030; J7040; Q9957

== ENCOUNTER 2023-03-25 07:30 | Outpatient (CLI) | payer BC, SELFPAY ==
--- NOTE | 2023-03-25 | ECHO_ITS ---
Patient Info Name: Edison Gagnon Age: 57 years : 1965 Gender: Male Ht: 71 in Wt: 260 lbs BSA: 2.47 m2 HR: 86 bpm BP: 116 / 73 mmHg Heart Rhythm: Atrial Fibrillation Technical Quality: Fair Exam Date: 03/25/2023 8:10 AM Exam Location: [facility] Patient Status: Outpatient Admit Date: 03/25/2023 Staff Ordering Physician: Inocencio Blanca MD Qc Analyst: Lillian Petty RDCS Attending Provider: Inocencio Blanca MD Referring Physician: Vazquez Esquivel MD; Exam Type: CA echo doppler color flow Study Info Indications R06.09 - Other forms of dyspnea Complete two-dimensional, color flow and Doppler transthoracic echocardiogram is performed. Summary 1. Complete two-dimensional, color flow and Doppler transthoracic echocardiogram is performed. 2. Left ventricular chamber dimension is normal. 3. Left ventricular systolic function is normal, estimated at 65-70%. 4. There is moderate concentric increased left ventricular wall thickness. 5. The left ventricular diastolic function is abnormal. 6. E/e' 13 is mildly elevated. 7. Atrial fibrillation. 8. Left atrial chamber dimension is moderately enlarged. 9. Right atrial chamber dimension is moderately enlarged. 10. There is moderate aortic valve sclerosis. 11. The mitral valve has moderately calcified annulus. 12. No pulmonary hypertension, estimated pulmonary arterial systolic pressure is 20 mmHg. Left Ventricle E/e' 13 is mildly elevated. Atrial fibrillation. Left ventricular chamber dimension is normal. Left ventricular systolic function is normal, estimated at 65-70%. There is moderate concentric increased left ventricular wall thickness. The left ventricular diastolic function is abnormal. Right Ventricle Right ventricular chamber dimension is normal. Right ventricular systolic function is normal. Left Atria Left atrial chamber dimension is moderately enlarged. Right Atria Right atrial chamber dimension is moderately enlarged. Aortic Valve The aortic valve is trileaflet. There is moderate aortic valve sclerosis. There is no aortic valve stenosis. There is no aortic valve regurgitation. Pulmonic Valve There is no pulmonic regurgitation. Mitral Valve The mitral valve has moderately calcified annulus. There is no mitral valve stenosis. There is no mitral valve regurgitation. Tricuspid Valve There is no tricuspid valve regurgitation. No pulmonary hypertension, estimated pulmonary arterial systolic pressure is 20 mmHg. Pericardium/Pleural There is no pericardial effusion. Inferior Vena Cava Normal inferior vena cava with >50% collapse upon inspiration consistent with normal right atrial pressure, 5 mmHg. Aorta The aortic root size at the sinus of Valsalva is normal. Left Ventricular Outflow Tract Name Value Normal LVOT 2D LVOT Diameter 2.0 cm LVOT Doppler LVOT Peak Gradient 3 mmHg LVOT Mean Gradient 3 mmHg LVOT VTI 22 cm LVOT VTI/AV VTI Ratio 1.1 LVOT Stroke Volume 66 ml LVOT CO 6.1 l/min LVOT CI
--- NOTE | ~2023-03-25 | US_ITS ---
EXAMINATION: US scrotum doppler DATE: 03/25/2023 13:25 INDICATION: Other specified disorders of the medial genital organs TECHNIQUE: Testicular sonogram utilizing grayscale and Doppler COMPARISON: 08/22/2018 FINDINGS: The right testis measures 5.2 x 2.4 x 3 cm. The left testis measures 3.9 x 2.5 x 3.2 cm. A large right hydrocele is again noted which contains echogenic internal debris. There is a small to mo derate-sized left hydrocele. There is normal vascular flow to both testes. The right epididymis is no t visualized. The left epididymis is normal with normal vascular flow. IMPRESSION: 1. Large right hydrocele containing echogenic internal debris and small to moderate-sized left hydroc delbert. Reviewed, dictated and finalized at location L. IMPRESSION: 1. Large right hydrocele containing echogenic internal debris and small to mode rate-sized left hydrocele.
--- NOTE | ~2023-03-25 | XR_ITS ---
Clinical Indication: Atrial fibrillation, dyspnea PA and lateral views of the chest: Comparison: 09/17/2020 Findings: The lungs are clear, without evidence of focal consolidation or pleural effusion. Cardiome diastinal silhouette is within normal limits. Bones and soft tissues are unremarkable. Impression: Normal chest. Reviewed, dictated and finalized at location . Impression: Normal chest.
--- NOTE | 2023-03-25 08:08 | ECG_ITS ---
Measurements Intervals [place] Rate: 89 P: PA: 0 QRS: -35 QRSD: 98 T: 87 QT: 380 QTc: 465 Interpretive Statements ATRIAL FIBRILLATION MARKED LEFT AXIS DEVIATION [QRS AXIS < -30] LOW QRS VOLTAGE IN EXTREMITY LEADS [QRS DEFLECTION < 0.5 mV IN LIMB LEADS] ABNORMAL ECG COMPARED TO ECG 09/19/2020 09:15:56 ATRIAL FIBRILLATION NOW PRESENT LEFT-AXIS DEVIATION NOW PRESENT Electronically Signed On 03-25-2023 9:05:16 CDT by Eliot Doyle M.D.
== END 2023-03-25 07:31 | disposition home or self-care (01) ==
PROVIDERS: PCP Family Medicine; Referring Provider Urology; Visit Provider Family Medicine
DX: R06.09 Other forms of dyspnea (principal); I21.4 Non-ST elevation (NSTEMI) myocardial infarction; I48.91 Unspecified atrial fibrillation; N50.89 Other specified disorders of the male genital organs; N43.3 Hydrocele, unspecified
CPT/HCPCS: 71046; 76870; 93005; 93306; 93976

== ENCOUNTER 2023-08-05 09:04 | Outpatient (CLI) | payer BC, SELFPAY ==
--- NOTE | ~2023-08-05 | NM_ITS ---
EXAMINATION: NM reji stress w perfusion DATE: 08/05/2023 11:43 INDICATION: Other forms of dyspnea TECHNIQUE: Rest images were obtained following intravenous administration of 9.5 mCi Tc99m tetrofosmi n (Myoview). The patient was infused intravenously with Lexiscan (Regadenoson). Then, 30.9 mCi Tc99m tetrofosmin (Myoview) was administered intravenously, and stress images were obtained initially in th e supine position with repeat post stress images obtained in the prone position. Data was reconstruct ed into short axis and horizontal and vertical long axis SPECT images. Gated SPECT images were also o btained. COMPARISON: None. FINDINGS: Moderate severity perfusion defect on the post stress imaging involving the apical lateral, mid and basilar inferolateral and mid and basilar anterolateral segments which persist with prone im aging. . This is nonreversible at the mid anterolateral segment consistent with infarct, minimally re versible at the basilar anterolateral and basilar inferolateral segments consistent with infarct with mild ischemia and completely reversible at the apical lateral and mid inferolateral segments consist ent with ischemia without infarct. There is normal left ventricular chamber size, wall motion and eje ction fraction. Left ventricular ejection fraction measures >70%. IMPRESSION: 1. Reversible moderate ischemia involving the majority of the left circumflex coronary artery vascula r distribution superimposed over a region of nonreversible infarct involving the more anterior portio n of the vascular distribution at the mid and basilar anterolateral segments and small portion immedi ately adjacent basilar anterolateral segment. 2. Left ventricular ejection fraction measuring >70%. Reviewed, dictated and finalized at location A. . UNIX SYSTEM ADMINISTRATOR IMPRESSION: 1. Reversible moderate ischemia involving the majority of the left circumflex c oronary artery vascular distribution superimposed over a region of nonreversibl e infarct involving the more anterior portion of the vascular distribution at t he mid and basilar anterolateral segments and small portion immediately adjacen t basilar anterolateral segment. 2. Left ventricular ejection fraction measuring >70%.
--- NOTE | 2023-08-05 09:30 | EST_ITS ---
Patient Info Name: Edison Gagnon Age: 57 years : 1965 Gender: Male Ht: 71 in Wt: 270 lbs BSA: 2.52 m2 HR: 71 bpm BP: 143 / 83 mmHg Heart Rhythm: Sinus Rhythm Exam Date: 08/05/2023 10:16 AM Exam Location: Echo Lab Patient Status: Outpatient Admit Date: 08/05/2023 Staff Ordering Physician: Hans Reyes DO Attending Provider: Hans Reyes DO Exercise Technologist: Rosa Rdz CT Exercise Physician: Hans Reyes DO Exam Type: CA stress reji w NM Study Info Indications R06.09 - Other forms of dyspnea A regadenoson stress test was performed. Summary 1. 1. Negative lexiscan stress test for ischemic ST changes by ECG criteria. 2. 2. Stable hemodynamics throughout the test. 3. 3. Nuclear scan to follow and will be reported separately. Please correlate with it. 4. 4. Patient informed of the above results. Protocol: Lexiscan Stress ECG Details Stage: REST Duration (min): 1 min : 2 sec HR (bpm): 61 SBP (mmHg): 143 DBP (mmHg): 83 Stage: REST Duration (min): 8 min : 1 sec HR (bpm): 60 SBP (mmHg): 143 DBP (mmHg): 83 Stage: STAGE 1 Duration (min): 1 min : 0 sec HR (bpm): 68 SBP (mmHg): 128 DBP (mmHg): 68 Stage: RECOVERY Duration (min): 1 min : 0 sec HR (bpm): 73 SBP (mmHg): 128 DBP (mmHg): 68 Stage: RECOVERY Duration (min): 2 min : 0 sec HR (bpm): 72 SBP (mmHg): 128 DBP (mmHg): 68 Stage: RECOVERY Duration (min): 3 min : 0 sec HR (bpm): 72 SBP (mmHg): 114 DBP (mmHg): 67 Stage: RECOVERY Duration (min): 3 min : 14 sec HR (bpm): 73 SBP (mmHg): 114 DBP (mmHg): 67 Rest HR: 60 bpm Peak HR: 73 bpm Rest Sys BP: 143 mmHg Peak Sys BP: 128 mmHg Max Pred HR: 161 bpm % Max Pred HR: 45 % Target HR: 137 bpm Max RPP: 9,344 bpm*mmHg Termination Reason: Completed protocol Cardiac Symptoms: Shortness of breath Total Time: 1 min : 0 sec Rest Michael BP: 83 mmHg Peak Michael BP: 68 mmHg Total Dose: 0.4 mg Resting ECG Sinus rhythm, IRBBB, LAFB. Stress ECG No ST changes. Arrhythmias None. Report Signatures
== END 2023-08-05 09:05 | disposition home or self-care (01) ==
PROVIDERS: PCP Family Medicine; Visit Provider Internal Medicine Cardiovascular Disease
DX: R06.09 Other forms of dyspnea (principal)
CPT/HCPCS: 78452; 93017; A9502; J2785

== ENCOUNTER 2023-08-19 01:42 | Day surgery (SDC) | payer BC, SELFPAY ==
[2023-08-18 15:51] VITALS: BMI 37.7
[2023-08-19] VITALS (8 sets, daily range): BP systolic 103–130; BP diastolic 72–89; PULSE 57–64; RESP 15–21; TEMP 36.6; O2SAT 93–97; BMI 37.7
[2023-08-19 09:01] LABS: Basophils Absolute Auto 0.1 K/mm3 (0.0-0.1); Basophils Percent Auto 0.7 % (0.2-1.2); Eosinophils Absolute Auto 0.2 K/mm3 (0-0.3); Eosinophils Percent Auto 2.2 % (0-4.4); Hematocrit 45.7 % (42.0-52.0); Immature Granulocyte Absolute 0.06 K/mm3 (0.00-0.031); Immature Granulocyte Percent A 0.7 % (0-0.5); Lymphocytes Absolute Auto 1.47 K/mm3 (0.9-3.2); Lymphocytes Percent Auto 18.4 % (18.3-44.2); Mean Corpuscular HGB Conc 32.8 g/dl (32-36); Mean Corpuscular Hemoglobin 29.8 pg (26-34); Mean Corpuscular Volume 90.9 fl (80-100); Mean Platelet Volume 12.4 fl (7.4-10.4); Monocytes Absolute Auto 0.9 K/mm3 (0.1-0.6); Monocytes Percent Auto 11.4 % (2.6-8.5); Neutrophils Absolute Auto 5.3 K/mm3 (1.3-6.7); Neutrophils Percent Auto 66.6 % (45.5-73.1); Platelet Count Result 221 k/mm3 (150-375); Red Blood Count 5.03 M/mm3 (4.6-6.20)
[2023-08-19 09:09] LABS: Anion Gap 9 mmol/L (8-16); Blood Urea Nitrogen 29 mg/dL (9-20); Calcium 9.5 mg/dL (8.4-10.2); Carbon Dioxide 23 mmol/L (22-30); Chloride 107 mmol/L (98-107); Estimated CRCL calculation 73 ml/min; Estimated Glomerular Filt Rate 57; Glucose 156 mg/dL (65-110); Potassium 4.5 mmol/L (3.4-5.0); Sodium 139 mmol/L (137-145)
--- NOTE | 2023-08-19 09:11 | WPDHPUPDATE1 ---
History and Physical Update Update Date/Time: 08/19/23 09:11 History and Physical has been reviewed, including an updated exam of the patient. There are NO changes in the patient's condition. Risks, benefits, and alternatives have been discussed and questions answered. Patient agrees to proceed with procedure.
--- NOTE | 2023-08-19 09:11 | WPDMODSED ---
Moderate Sedation Note-Pt Data Patient Data Diagnosis: Abnormal stress test Present Complaint: Abnormal stress test Procedure to be performed/Plan: Coronary angiography, left heart cath, +/- PCI Allergies Allergy/AdvReac Type Severity Reaction Status Date / Time Penicillins Allergy Mild rash Verified 08/19/23 08:30 Home Medications Medication Instructions Recorded Confirmed Type blood sugar diagnostic (Accu-Chek #100 ea 09/24/20 08/06/23 Rx Shima Plus test strips) blood-glucose meter (Accu-Chek #1 ea 09/24/20 08/06/23 Rx Shima Plus Meter) lancets (Accu-Chek Softclix #100 ea 09/24/20 08/06/23 Rx Lancets) atorvastatin 80 mg tablet 80 mg PO DAILY #90 tabs 07/27/22 08/18/23 Rx lisinopril 10 mg tablet 10 mg PO DAILY #30 tabs 02/25/23 08/18/23 Rx metoprolol tartrate 50 mg tablet 50 mg PO Q12HR #60 tabs 02/25/23 08/18/23 Rx aspirin 81 mg tablet,delayed 81 mg PO DAILY 04/06/23 08/18/23 History release (Saritha Low Dose Aspirin) bupropion HCl 300 mg 24 hr tablet, 300 mg PO QAM #30 tabs 04/06/23 08/18/23 Rx extended release amlodipine 5 mg tablet 10 mg PO DAILY 08/18/23 08/18/23 History metformin 500 mg tablet,extended 2,000 mg PO HS 08/18/23 08/18/23 History release 24 hr Current Medications: Active Medications Sodium Chloride (Normal Saline Iv) 500 mls @ 100 mls/hr IV CONT .Q5H LEEANN Sedation/Anesthesia: No previous sedation/anesthesia problems (including family history). [facility]LY [facility] Past Medical History Medical History Adult BMI 36.0-36.9 kg/sq m Atrial fibrillation BMI 34.0-34.9,adult BMI 35.0-35.9,adult BMI 37.0-37.9, adult BMI 38.0-38.9,adult Coronary artery disease FERGUSON (dyspnea on exertion) Hydrocele, right Hyperlipidemia Hypertension Surgical History Surgical History Stented coronary artery Family History Family History Father Hypertension Family history of coronary artery disease Family history of diabetes mellitus in first degree relative Sibling Family history of diabetes mellitus in first degree relative H/O gastric sleeve Mother Diabetes mellitus Alzheimers disease Social History Social History Smoking packs per day: 1.5 Smoking cigarettes per day: 30.0 Years smoked: 27 Smoking pack-years: 40.50 Smoking status: Current every day smoker Tobacco type: cigarettes Second hand tobacco smoke exposure: No Additional smoking assessment comments: 1 pack per day Alcohol intake: current Alcohol use details: 2 beers per moth Substance use: current Substance use type: marijuana Lack of Transportation: No Lack of Food: Never True Current Housing: I Have Housing Concerned About Future Housing: No Difficulty Paying Gas/Electric Bills: No Difficulty Paying for Meds: No Currently Unemployed: No Education: Trade/Vocational Certificate Difficulty w/ Childcare or Family Care: No Living arrangements: with family Occupation/Education: occupation Additional occupation/education comments: body work Gender identity (if verbalized by the patient): Male Spiritual care concerns: No Mod Sed Physical Exam Physical Exam Pre Procedural Exam: Normal: Appearance, Lungs, Heart Rate, Heart Rhythm, Neuro Exam, Extremities and Skin and Variation: Abdomen (Central obesity ) Hours since solid foods: 12 Hours since liquid intake: 8 Mallampati Classification: class III Internal Medicine - PN: Obj Da Vital Signs Vital Signs: Vital Signs - 24 hr 08/19/23 08:36 Temperature 36.6 C Pulse Rate 60 Respiratory Rate 16 Blood Pressure 130/89 Pulse Oximetry 97 Oxygen Delivery Room Air Meds/Results Medications: Active Medications Generic Name Dose Route Start Last Admin Trade Name Freq PRN Reason Stop Dose Admi
--- NOTE | 2023-08-19 11:05 | WPDCARDPROC ---
Cardiac Cath Procedure Note Date of procedure:: 08/19/23 Performing physician:: CATHETERIZATION LABORATORY REPORT Procedure Date: 08/19/2023 Distribution Dispatcher: Reggie Holliday M.D., [facility]? Referring Physician: Hans Reyes M.D. ? Anesthesia: Versed and Fentanyl were ordered and given in my presence at 10:11, procedure ended at 10:56. Supervision of nurse monitored moderate sedation with Versed and Fentanyl was provided for 45 minutes. Total of Versed 1mg and Fentanyl 25mcg were administered by the Food Service Specialist RN Lakia Wick. Pre-op Diagnosis: Coronary artery disease Post-op Diagnosis: 1) After the bifurcation of OM-1, the mid LCX appears to have an eccentric stenosis of 80% or so which is appreciated on the FALK CAUDAL view but not appreciated on the other views. There is visible stent material seen in the proximal portion of OM-2 extending into LCX. OM-2 is completely occluded in its ostium. There are [id number]-[id number]-pbio collaterals filling the distal OM-2 branches. 2) The RCA is diffusely ectatic with diffuse mild disease. There is a 40% stenosis in the proximal portion. The distal RCA prior to the bifurcation of the RPDA and RPLV has an eccentric 70% stenosis. Procedure(s): 1. Moderate sedation 2. Ultrasound guided access of the right radial artery 3. Coronary angiography Access Site: Right radial artery Brief History and Clinical Indications: Patient is a 57 year old male with coronary artery disease s/p prior stent to OM2, atrial fibrillation not on anticoagulation, diabetes mellitus, hypertension, hyperlipidemia, CLIVE intolerant of CPAP, tobacco dependence who is referred for [facility] for abnormal stress test. Patient is undergoing preoperative evaluation for hydrocele surgery. He underwent Lexiscan stress test which showed moderate ischemia in the LCX territory. All risks, benefits and alternatives to left heart catheterization with or without percutaneous coronary intervention was discussed at length with the patient. Risk of complications including but not limited to bleeding, infection, arrhythmia, stroke, worsening kidney function, blood loss, groin hematoma, limb loss, emergency coronary artery bypass grafting, and even were discussed with the patient and all questions were answered. The patient understood and wished to proceed. Time out called, patient name, date of , medical record number, allergies, procedure performed, identify Distribution Dispatcher, patient and staff member concurred with accurate data, procedure carried on. Findings: LEFT HEART CATHETERIZATION FINDINGS: 1. Left main: The left main coronary artery is widely patent without any significant obstructive disease. 2. Left anterior descending: The LAD and the diagonal branches have mild diffuse disease without any significant obstructive angiographic disease. 3. Left circumflex: The proximal LCX has mild diffuse disease. OM-1 has mild diffuse disease. After the bifurcation of OM-1, the mid LCX appears to have an eccentric stenosis of 80% or so which is appreciated on the FALK CAUDAL view but not appreciated on the other views. There is visible stent material seen in the proximal portion of OM-2 extending into LCX. OM-2 is completely occluded in its ostium. There are utqv-ez-ayyc collaterals filling the distal OM-2 branches. 4. Right coronary artery: The RCA is the dominant vessel. Large caliber vessel. The RCA is diffusely ectatic with diffuse mild disease. There is a 40% stenosis in the proximal portion. The distal RCA prior to the bifurcation of the RPDA and RPLV has an eccentric 70% stenosis. The RPDA and RPLV have mild diffuse disease. Description of Procedure: Informed consent signed and placed in the chart. Patient transferred to general labor room. Prepped and draped in usual sterile fashion. 2% lidocaine injected subcutaneously in right wrist area. 22-gauge venipuncture catheter used to access the right radial artery under ultrasound guidance. 6-FR slen
== END 2023-08-19 14:50 | disposition home or self-care (01) ==
PROVIDERS: PCP Family Medicine; Visit Provider Internal Medicine
PROC: (CPT 93454; principal; 2023-08-19 10:00)
DX: I25.10 Atherosclerotic heart disease of native coronary artery without angina pectoris (principal); R94.39 Abnormal result of other cardiovascular function study; I48.91 Unspecified atrial fibrillation; I10 Essential (primary) hypertension; E11.9 Type 2 diabetes mellitus without complications; E78.5 Hyperlipidemia, unspecified; G73.3 Myasthenic syndromes in other diseases classified elsewhere; F17.210 Nicotine dependence, cigarettes, uncomplicated; F12.90 Cannabis use, unspecified, uncomplicated
CPT/HCPCS: 36415; 80048; 85025; 93454; C1769; C1887; C1894; J0583; J1644; J2250; J2305; J3010; J7040

== ENCOUNTER 2024-04-25 14:30 | Outpatient (CLI) | payer BC, SELFPAY ==
--- NOTE | ~2024-04-25 | XR_ITS ---
CHEST RADIOGRAPH, PA AND LATERAL CLINICAL HISTORY: sob hx of smoking for 30 years . COMPARISON: 03/25/2023 TECHNIQUE: PA and lateral views of the chest. FINDINGS The cardiomediastinal silhouette is unremarkable. Coarse interstitial lung markings, chronic appearance. The remainder of the lungs are clear. Visualized osseous structures and soft tissues are unremarkable. IMPRESSION: Coarse lung markings, without focal infiltrate or effusion. If clinical suspicion persists, cross-sectional imaging (noncontrast enhanced CT examination of the c hest) is suggested for further evaluation. Reviewed, dictated and finalized at location A. ERGARTEN PARAPROFESSIONAL IMPRESSION: Coarse lung markings, without focal infiltrate or effusion. If clinical suspicion persists, cross-sectional imaging (noncontrast enhanced C T examination of the chest) is suggested for further evaluation.
--- NOTE | ~2024-04-25 | US_ITS ---
EXAMINATION: US venous doppler [facility] DATE: 04/25/2024 15:01 INDICATION: Localized left lower limb swelling along with pain, erythema and lump at the thigh. Short ness of breath. TECHNIQUE: Grayscale ultrasound images without and with compression and Doppler ultrasound images of the left lower extremity veins were obtained. COMPARISON: None. FINDINGS: The visualized portions of left common femoral vein, profunda (deep) femoral vein, femoral vein, popl iteal vein, tibioperoneal trunk, peroneal veins, posterior tibial veins, gastrocnemius vein and great er saphenous vein outflow are patent. IMPRESSION: 1. No deep venous thrombosis in the left lower limb. Reviewed, dictated and finalized at location B. TRONIC CALIBRATION TECHNICIAN
== END 2024-04-25 14:31 | disposition home or self-care (01) ==
LOC: MICIMG 14:31
PROVIDERS: PCP Family Medicine; Visit Provider Nurse Practitioner Adult Health
DX: R60.0 Localized edema (principal); L53.9 Erythematous condition, unspecified; R06.02 Shortness of breath
CPT/HCPCS: 71046; 93971

== ENCOUNTER 2024-08-16 10:05 | Outpatient (CLI) | payer BC, SELFPAY ==
--- NOTE | ~2024-08-16 | US_ITS ---
US renal BI Ordering provider: Nancy Martin APRN History: . N17.9 - Acute kidney failure, unspecified . Comparison: None. Technique: Ultrasound bilateral kidneys. Findings: RIGHT KIDNEY: Measures 10.8x 6.6x 5.9 cm in length which is normal in size. No renal cysts. No renal mass. Multiple small echogenic foci suggestive of stones. The largest measures 0.5 x 0.3 x 0.5 cm. Ot herwise, normal echotexture and contour. No hydronephrosis. Normal renal cortical thickness. LEFT KIDNEY: Measures 10.8x 5.3x 5.9 cm in length which is normal in size. Simple Cystic area measuri ng 1.5 x 1.3 x 1.3 cm is seen. Hypoechoic/isoechoic area is also seen in the superior pole measuring 2.6 x 2.3 x 2.2 cm which is most likely a cyst. Follow-up advised.. No definite renal mass. Multiple small echogenic foci are noted suggestive of stones. Otherwise, normal echotexture and contour. No hy dronephrosis. Normal renal cortical thickness. BLADDER: Normal. Ureteral jets were not seen bilaterally. Bladder wall measures 0.3 cm. IMPRESSION: Bilateral kidney stones. Right kidney simple cyst. Right kidney hypoechoic area most likely a cyst. Follow-up advised. Reviewed, dictated and finalized at location A. IESEL PLANT MANAGER
--- OUTSIDE RECORDS SUMMARY | 2024-08-16 11:11 | XMS_ITS | Referral Summary ---
Author Organization [facility] Address [address] [place] [address] Care Team Providers Care Career Transition Specialist Name Role Phone Inocencio Blanca MD Primary Care Provider [phone] Allergies Active Allergy Reactions Criticality Noted Date Comments Penicillins Hives Medium 09/20/2023 Happened as a kid Medications atorvastatin (LIPITOR) 80 mg tablet Take 1 tablet (80 mg total) by mouth daily Active lisinopriL (PRINIVIL,ZESTR IL) 10 mg tablet Take 1 tablet (10 mg total) by mouth daily Active metoprolol tartrate (LOPRESSOR) 50 mg immediate release tablet Take 1 tablet (50 mg total) by mouth 2 (two) times a day Active aspirin 81 mg enteric coated tablet Take 1 tablet (81 mg total) by mouth daily Active buPROPion XL (WELLBUTRIN XL) 300 mg 24 hr tablet Take 1 tablet (300 mg total) by mouth daily Active amLODIPine (NORVASC) 10 mg tablet Take 1 tablet (10 mg total) by mouth daily Active metFORMIN (GLUMETZA) 500 mg 24 hr tablet Take 4 tablets (2,000 mg total) by mouth daily with dinner Active oxyCODONE (ROXICODONE) 5 mg immediate release tabletIndicatio ns:Pain Take 1 tablet (5 mg total) by mouth every 4 (four) hours as needed for pain 25 tablet 09/24/2023 Active Active Problems Problem Noted Date Diagnosed Date Hydrocele 09/02/2023 Right hydrocele 04/23/2023 Social History Tobacco Use Types Packs/Day Years Used Date Smoking Tobacco: Former Cigarettes Q uit: 08/30/2023 Smokeless Tobacco: Never Tobacco Cessation:Counseling Given: Not Answered AUDIT-C Answer Date Recorded Q1: How often do you have a drink containing alc ohol? Monthly or less 09/24/2023 Q2: How many drinks containi ng alcohol do you have on a typical day when you are drinking? 1 or 2 09/24/2023 Q3: How often do you have si x or more drinks on one occasion? Never 09/24/2023 Personal Safety Answer Date Recorded Have you ever been in or are you currently in a harmful physical or emotional relationship or is someone making you feel afraid or unsafe? 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 Gender Identity Not on file Sexual Orientation Not on file Last Filed Vital Signs Vital Sign Reading Time Taken Comments Blood Pressure 120/80 09/24/2023 12:25 PM CDT Pulse 62 09/24/2023 12:25 PM CDT Temperature 37 C (98.6 F) 09/24/2023 12:25 PM CDT Respiratory Rate 20 09/24/2023 12:2 5 PM CDT Oxygen Saturation 93% 09/24/2023 12: 25 PM CDT Inhaled Oxygen Concentration - - Weight 126.8 kg (279 lb 8.7 oz) 09/24/2023 8:03 AM CDT Height 180.3 cm (5' 11 ) 09/24/2023 8:03 AM CDT Body Mass Index 38.99 09/24/2023 8:03 AM CDT Plan of Treatment Not on file Insurance CHOICE [place]F PPO [place] Care Teams Career Transition Specialist Relationship Specialty Start Date End Date Inocencio Blanca MD [address] [place] [address] PCP - General Family Medicine 08/19/23
--- OUTSIDE RECORDS SUMMARY | 2024-08-16 11:11 | XMS_ITS | Clinical Summary ---
Author Organization [facility] Address [address] [place] [address] Care Team Providers Care Leak Operator Paraffin Plant Name Role Phone Inocencio Blanca MD Primary Care Provider [phone] Allergies Active Allergy Reactions Criticality Noted Date [...] Diagnosed Date Hydrocele 09/02/2023 Right hydrocele 04/23/2023 Surgical History Surgery Date Site/Laterality Comments CORONARY ANGIOPLASTY WITH STENT PLACEMENT Un known date CARDIAC CATHETERIZATION 08/19/2023 Medical History Medical History Date Comments Arrhythmia Hypertension Type 2 diabetes mellitus (HCC) Sleep apnea Social History Tobacco Use Types Packs/Day Years [...] on file 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 Gender Identity Not on file Sexual Orientation Not on file Obstetrics History Last Filed Vital Signs Vital Sign Reading [...] 09/24/2023 8:03 AM CDT Plan of Treatment Health Maintenance Due Date Last Done Comments Colon Cancer Screening-Colonoscopy 1965 Depression Screening 1965 Hepatitis C Screening 1965 Prostate Cancer Screening-PSA 1965 DTaP/Tdap/Td Vaccine (1 - Tdap) 09/17/1974 Hepatitis B Screening 09/17/1981 Regular Well Visit/Exam 18-64 09/17/1981 Zoster Vaccine (1 of 2) 09/17/2013 Covid-19 Vaccine (4 2023-2 5 season) 2024 06/05/2021, 10/06/2020, 09/14/2020 Influenza Vaccine (#1) 2024 Pneumococcal vaccine <65 Aged Out No longer eligible based on patient's age to complete this topic Insurance [place] Care Teams Leak Operator Paraffin Plant Relationship Specialty Start Date End Date Inocencio Blanca MD [address] [place] [address] PCP - General Family Medicine 08/19/23
--- OUTSIDE RECORDS SUMMARY | 2024-08-16 11:11 | XMS_ITS | Encounter Summary ---
Author Organization [facility] Address [address] [place] [address] Care Team Providers Care Bottom Cager Name Role Phone Inocencio Blanca MD Primary Care Provider Encounter Details Date Type Department Care Team (Late st Contact Info) Description 08/23/2023 Orders Only [facility] Health Information Management [address] [place] [id number] Scanning, Provider Social History Tobacco Use Types Packs/Day Years Used Date Smoking Tobacco: Never Assessed Personal Safety Answer Date Recorded Getting School Help Needed Not on file 06/18 Sex and Gender Information Value Date Recorded Sex Assigned at Not on file 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 Gender Identity Not on file Sexual Orientation Not on file documented as of this encounter Plan of Treatment Not on file documented as of this encounter Procedures Procedure Name Priority Date/Time Associated Diagnosis Comments SCAN - LABS 08/23/2023 9:29 PM CDT CARDIOLOGY DOCUMENT SCAN 08/23/2023 9:29 PM CDT documented in this encounter Results * SCAN - LABS (08/23/2023 9:29 PM CDT) us Provider Scanning Final Result * Cardiology Document Scan (08/23/2023 9:29 PM CDT) Anatomical Region Laterality Modality Other us Provider Scanning CV CARDIAC SERVICES PROCEDURES Final Result documented in this encounter Visit Diagnoses Not on filedocumented in this encounter Care Teams Bottom Cager Relationship Specialty Start Date End Date Inocencio Blanca MD [address] [place] [address] PCP - General Family Medicine 08/19/23 documented as of this encounter
== END 2024-08-16 10:06 | disposition home or self-care (01) ==
PROVIDERS: PCP Family Medicine; Visit Provider Nurse Practitioner Adult Health
DX: N17.9 Acute kidney failure, unspecified (principal); N20.0 Calculus of kidney
CPT/HCPCS: 76775

== ENCOUNTER 2024-08-25 12:41 | Outpatient (CLI) | payer BC, SELFPAY ==
--- NOTE | ~2024-08-25 | XR_ITS ---
XR abdomen/kub 1V Ordering provider: Nancy Martin APRN History: . N20.0 - Calculus of kidney . Comparison: None. FINDINGS: BOWEL: Nonobstructive bowel gas pattern. ORGANOMEGALY: None. SIGNIFICANT PATHOLOGIC CALCIFICATIONS: None. OTHER: No free air is seen under the diaphragm. Degenerative changes of the spine. Bilateral sacroili acs. Mild bilateral hip osteoarthritic changes. IMPRESSION: NO ACUTE ABDOMINAL FINDINGS. Reviewed, dictated and finalized at location A.
--- NOTE | ~2024-08-25 | CT_ITS ---
Non-contrast CT scan of the Abdomen and Pelvis Clinical indication: Renal stone Technique: 2.5 mm axial scans were obtained through the abdomen and pelvis without intravenous or or al contrast. Dose reduction technique was used on this scan by utilizing automated exposure control a nd iterative reconstruction technique. The dose-length product (DLP) was 1545.26 mGy-cm. Findings: Images through the lung bases reveal no abnormalities. There is no evidence of renal or ureteral calculi. The kidneys and the ureters are nondilated. Possible minimal nodular contour of liver. The spleen, pancreas, gallbladder, and adrenals appear nor mal. There is no aortic aneurysm. There is no evidence of bowel obstruction. Images through the pelvis were performed. There is no evidence of ascites or lymphadenopathy. Urinary bladder unremarkable. No pelvic mass seen. No ascites. Impression: No renal, ureteral, or bladder stone. No hydronephrosis. Suspected early/mild cirrhotic change of the liver. Correlate clinically. Reviewed, dictated and finalized at [facility]. Impression: No renal, ureteral, or bladder stone. No hydronephrosis. Suspected early/mild cirrhotic change of the liver. Correlate clinically.
--- OUTSIDE RECORDS SUMMARY | 2024-08-25 12:46 | XMS_ITS | Referral Summary ---
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
--- OUTSIDE RECORDS SUMMARY | 2024-08-25 12:46 | XMS_ITS | Clinical Summary ---
Author Organization [facility] Address [address] [place] [address] Care Team Providers Care Conductor Freight Name Role Phone Inocencio Blanca MD Primary Care Provider [phone] Allergies Active Allergy Reactions Criticality Noted Date [...] on file Legal Sex Male 7:36 PM MANAGEMENT SME Gender Identity Not on file Sexual Orientation [...] BL CHOICE [place]F [place] Care Teams Conductor Freight Relationship Specialty Start Date End Date Inocencio Blanca MD [address] [place] [address] PCP - General Family Medicine 08/19/23
--- OUTSIDE RECORDS SUMMARY | 2024-08-25 12:46 | XMS_ITS | Encounter Summary ---
Author Organization [facility] Address [address] [place] [address] Care Team Providers Care City Planner Name Role Phone Inocencio Blanca MD Primary Care Provider Encounter Details Date Type Department Care Team (Late st Contact Info) Description 08/23/2023 Orders Only [facility] [place] [address] [place] [id number] Scanning, Provider Social History Tobacco Use Types Packs/Day Years Used Date Smoking Tobacco: Never Assessed Personal Safety Answer Date Recorded Getting School Help Needed Not on file 06/18 Sex and Gender Information Value Date Recorded Sex Assigned at Not on file 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
== END 2024-08-25 12:42 | disposition home or self-care (01) ==
LOC: ANHIMG 12:42
PROVIDERS: PCP Family Medicine; Visit Provider Nurse Practitioner Adult Health
DX: N20.0 Calculus of kidney (principal); R10.9 Unspecified abdominal pain
CPT/HCPCS: 74018; 74176